=== PATIENT | female | born 1985 | race Caucasian/White ===

== ENCOUNTER 2020-09-11 03:00 | Inpatient (IN) | payer OTHER, SELFPAY ==
[~2020-09-11] VITALS: Ht 172.7 cm; Wt 113.0 kg
[2020-09-11 03:13] VITALS: BP 140/97
--- NOTE | 2020-09-11 03:26 | NUR ---
Pt ambulated to ER bed 12 w/ steady gait. Urine sample collected from pt at this time.
[2020-09-11] MEDS ORDERED: KETOROLAC 30 MG/ML VIAL IVP ONE (03:40)
[2020-09-11] MEDS ORDERED: NACL 0.9% 500 ML IV ONE (03:40)
[2020-09-11] MEDS ORDERED: ONDANSETRON 4 MG/2 ML VIAL IVP ONE ×2 (03:40→06:25)
--- NOTE | 2020-09-11 03:55 | NUR ---
PT TO CT VIA W/C
--- NOTE | 2020-09-11 04:05 | NUR ---
RETURNED FROM CT
--- NOTE | 2020-09-11 04:29 | NUR ---
REPOSITION TO RELIEVE SOME PAIN. PT STATES SITTING UP HELPS EASE SOME OF THE PAIN BUT NOT ALL OF IT
[2020-09-11] MEDS ORDERED: MORPHINE SULFATE 2 MG/ML SYR IVP ONE ×2 (04:50→05:40)
--- NOTE | 2020-09-11 05:35 | NUR ---
PT AMBULATED TO BATHROOM
--- NOTE | 2020-09-11 05:52 | NUR ---
FERNANDO GIVEN TO PIERO FROM LAB
--- NOTE | 2020-09-11 05:54 | NUR ---
EMESIS BAG GIVEN TO PT DUE TO PT STATES "IM FEELING QUEASY"
[2020-09-11] MEDS ORDERED: HYDROcodone/APAP 5/325 MG 1 TAB TAB PO PRN ×2 (06:45→08:00)
--- NOTE | 2020-09-11 07:15 | NUR ---
GAVE REPORT TO JENNIFER MARTIN
[2020-09-11] MEDS: NACL 0.9% 1,000 ML IV SCH ×3 (07:41→22:45)
--- NOTE | 2020-09-11 07:53 | NUR ---
Patient will be admitted to care of Dr Vasques. Admited to [facility]. Will go to room 102B. Belongings list completed. Report to Carlos RODRIGUEZ.
[2020-09-11] MEDS ORDERED: POTASSIUM CHLORIDE 10 MEQ TABER PO PRN (08:00)
[2020-09-11] MEDS ORDERED: MORPHINE SULFATE 2 MG/ML SYR IVP PRN (08:00)
[2020-09-11] MEDS ORDERED: ACETAMINOPHEN 325 MG TAB PO PRN (08:00)
[2020-09-11] MEDS ORDERED: MAG SULF 2000 MG/WATER PREMIX 50 ML IV PRN (08:00)
[2020-09-11] MEDS ORDERED: ONDANSETRON 4 MG/2 ML VIAL IM/IVP PRN (08:00)
[2020-09-11] MEDS ORDERED: LORazepam 2 MG/ML VIAL IM/IVP PRN (08:00)
[2020-09-11] MEDS ORDERED: DOCUSATE SODIUM 100 MG GELCAP PO PRN (08:00)
[2020-09-11 08:02] VITALS: BP 111/60
--- NOTE | 2020-09-11 08:02 | NUR ---
RECEIVED REPORT FROM ER NURSE FOR CONTINUITY OF CARE. PATIENT AAOX4. AMBULATORY. RESPIRATORY EVEN UNLABORED. RIGHT SIDE KIDNEY AND FLANK PAIN. DX WITH KIDNEY STONE. ORIENTED THE PATIENT TO THE ROOM AND HOSPITAL ENVIRONMENT. DENIES PAIN AT THIS TIME. MRSA SWAB COLLECTED. PLAN OF CARE DISCUSSED. WILL CONTINUE TO MONITOR.
[2020-09-11 08:46] LABS: PROTHROMBIN TIME 9.9 secs (10.8-13.4)
[2020-09-11 08:55] LABS: THYROID STIMULATING HORMONE 0.95 uIU/mL (0.34-3.74)
[2020-09-11] MEDS: TAMSULOSIN 0.4 MG CAP PO SCH (08:56)
[2020-09-11 08:57] LABS: BARBITURATE, URINE NEGATIVE ng/ml (NEG <=200); BENZODIAZEPINE, URINE NEGATIVE ng/mL (NEG <=200); CANNABINOID, URINE NEGATIVE ng/mL (NEG <=50); COCAINE, URINE NEGATIVE ng/mL (NEG <=300); OPIATE, URINE POSITIVE ng/mL (NEG <=2000); PHENCYCLIDINE SCREEN,URINE NEGATIVE ng/mL (NEG <=25)
[2020-09-11 09:05] LABS: BILIRUBIN,URINE NEGATIVE (NEGATIVE); BLOOD, URINE 1+ (NEGATIVE); COLOR,URINE YELLOW (YELLOW); LEUKOCYTE ESTERASE ,URINE 1+ (NEGATIVE); NITRITE, URINE NEGATIVE (NEGATIVE); UGLUCOSE NEGATIVE (NEGATIVE)
[2020-09-11 09:07] LABS: APPEARANCE,URINE SLIGHTLY HAZY (CLEAR)
[2020-09-11 09:09] LABS: BASOPHILS % (AUTO) 0.2 % (0.0-2.0); EOSINOPHILS # (AUTO) 0.1 K/uL (0-0.4); EOSINOPHILS % (AUTO) 0.5 % (0.0-4.0); HEMATOCRIT 34.7 % (36-48); LYMPHOCYTES # (AUTO) 1.5 K/uL (2.5-16.5); LYMPHOCYTES % (AUTO) 13.1 % (20.5-51.1); MEAN CORPUSCULAR HEMOGLOBIN 25 pg (27-31); MEAN CORPUSCULAR HGB CONC 32 g/dL (33-37); MEAN CORPUSCULAR VOLUME 77.7 fL (80-94); MONOCYTES # (AUTO) 0.7 K/uL (0.8-1.0); MONOCYTES % (AUTO) 5.6 % (1.7-9.3); NEUTROPHILS # (AUTO) 9.5 K/uL (1.8-7.7); NEUTROPHILS % (AUTO) 80.6 % (42.2-75.2); PLATELET COUNT (AUTO) 289 K/uL (140-450); RED BLOOD CELL COUNT(AUTO) 4.47 MIL/uL (4.20-5.40); RED CELL DISTRIBUTION WIDTH 15.4 % (11.6-13.7); WHITE BLOOD COUNT (AUTO) 11.8 K/uL (4.8-10.8)
--- NOTE | 2020-09-11 11:12 | NUR ---
UROLOGIST CHECKING THE PATIENT RIGHT NOW.
[2020-09-11 16:00] VITALS: BP 108/64
--- NOTE | 2020-09-11 16:21 | NUR ---
PATIENT HAS BEEN SCREENED AND CATEGORIZED LOW NUTRITION RISK. PATIENT WILL BE SEEN WITHIN 7 DAYS OF ADMISSION. 09/17/[address]
--- NOTE | 2020-09-11 19:35 | NUR ---
ENDORSED PATIENT TO SAMPLE WRAPPER RN FOR CONTINUITY OF CARE. PATIENT IN STABLE CONDITION.
--- NOTE | 2020-09-11 19:36 | NUR ---
RECD. RESTING IN BED, AWAKE, A/OX4. RESPIRATION EVEN AND UNLABORED. IV OF NS A 125 ML/HR INFUSING RIGHT HAND G24. IV SALINE LOCK AT THE LEFT AC G18, PATENT AND INTACT. INDEPENDENT, AMBULATORY TO THE BR. AWARE OF PLANNED SURGERY TOMORROW. MEDICATIONS AND CARE FOR THE SHIFT DISCUSSED. VERBALIZED UNDERSTANDING. DENIES PAIN 0/10.
--- NOTE | 2020-09-11 19:45 | NUR ---
RECEIVED PT A/A/OX4, LAYING IN BED WITH NO DISTRESS. REVIEWED POC WITH ANDERS FERMIN AND BOTH AGREED. PT HAS NO COMPLAIN AT THIS TIME.CALL LIGHT WITHIN REACH. WILL CONTINUE POC.
[2020-09-11 20:00] VITALS: BP 122/69
--- NOTE | 2020-09-11 21:00 | NUR ---
HEPARIN NOT GIVEN, FOR CYSTOSCOPY TOMORROW, DR. AGUILERA AWARE.
--- NOTE | 2020-09-11 22:15 | NUR ---
SLEEPING COMFORTABLY IN BED.
--- NOTE | 2020-09-11 23:00 | NUR ---
REMINDED THAT SHE IS NPO PAST MIDNIGHT FOR CYSTOSCOPY TOMORROW. VERBALIZED UNDERSTANDING.
[2020-09-11] MEDS: ZOLPIDEM 5 MG TAB PO PRN (23:43)
--- NOTE | 2020-09-11 23:43 | NUR ---
UNABLE TO SLEEP AGAIN AFTER WAKING UP FROM SLEEP. MEDICATED WITH AMBIEN PER MD ORDER.
[2020-09-12] MEDS: NACL 0.9% 1,000 ML IV SCH ×4 (01:44→22:45)
--- NOTE | 2020-09-12 01:45 | NUR ---
SLEEPING COMFORTABLY IN BED.
--- NOTE | 2020-09-12 03:30 | NUR ---
AMBULATED TO BR TO VOID, BACK TO BED AFTER VOIDING AND GO BACK TO SLEEP.
--- NOTE | 2020-09-12 05:00 | NUR ---
SLEEPING COMFORTABLY IN BED.
[2020-09-12 06:16] LABS: BASOPHILS % (AUTO) 0.4 % (0.0-2.0); EOSINOPHILS # (AUTO) 0.3 K/uL (0-0.4); EOSINOPHILS % (AUTO) 4.4 % (0.0-4.0); HEMATOCRIT 31.7 % (36-48); HEMOGLOBIN 10.2 g/dL (12.0-16.0); LYMPHOCYTES # (AUTO) 2.4 K/uL (2.5-16.5); LYMPHOCYTES % (AUTO) 35.8 % (20.5-51.1); MEAN CORPUSCULAR HEMOGLOBIN 25 pg (27-31); MEAN CORPUSCULAR HGB CONC 32 g/dL (33-37); MEAN CORPUSCULAR VOLUME 77.3 fL (80-94); MONOCYTES # (AUTO) 0.4 K/uL (0.8-1.0); MONOCYTES % (AUTO) 5.3 % (1.7-9.3); NEUTROPHILS # (AUTO) 3.6 K/uL (1.8-7.7); NEUTROPHILS % (AUTO) 54.1 % (42.2-75.2); PLATELET COUNT (AUTO) 237 K/uL (140-450); RED CELL DISTRIBUTION WIDTH 15.6 % (11.6-13.7); WHITE BLOOD COUNT (AUTO) 6.7 K/uL (4.8-10.8)
--- NOTE | 2020-09-12 06:50 | NUR ---
CONDITION REMAIN STABLE. WILL ENDORSE TO AM SHIFT NURSE FOR CONTINUITY OF CARE.
[2020-09-12 07:08] LABS: T4 (THYROXINE) 5.8 ug/dL (4.5-12.0)
--- NOTE | 2020-09-12 07:25 | NUR ---
NURSE REPORT AND ASSESSMENT Report obtained from night nurse Alejandra and this nurse assumed care of patient. Received patient awake at beginning of day shift. No c/o pain or discomfort. NPO for Lithotripsy for 1300. IV NS at 125 ml/hr into R wrist. Daughter mom called this am to talk to patient.
--- NOTE | 2020-09-12 07:30 | NUR ---
ENDORSED TO AM SHIFT NURSE FOR CONTINUITY OF CARE.
[2020-09-12 08:00] VITALS: BP 103/61
[2020-09-12] MEDS: TAMSULOSIN 0.4 MG CAP PO SCH (09:32)
--- NOTE | 2020-09-12 10:42 | NUR ---
SOCIAL WORK NOTE: Patient's Orientation Unable To Assess Information Provided By RE GILBERT - Comments SW WAS UNABLE TO MEET PATIENT AT BEDSIDE. SW COMPLETED ASSESSMENT WITH PATIENT'S . Honey Extractor, Realtionship and Phone Number RE GILBERT [phone] [facility] Power of Rework Machine Operator No Does Patient Have a POLST No Identifying Problems No Social Work Triggers Is A Social Work Consult Needed No Mandate Report Filed No Explanation Of Identifying Problems PATIENT IS A 35-YEAR-OLD FEMALE ADMITTED FOR KIDNEY STONES. PATIENT HAS PMHX OF RENAL DISEASE. Admitted From Home Pre-Admission Level Of Functioning Status Independent/Ambulatory Prior Resources/Services Used In Last 12 Months No Prior Resources Used Prior DME No Prior DME Used Living Situation Lives With Family House Patient Had Caregiver No Home Support No Caregiver Issues Financial Issues No Known Financial Issue Referral To The Financial Counselor Needed No Factors/Needs No D/C Needs Identified Pt/Rep Participated In Discharge Plan Yes Patient/Family Agress With Discharge Plan Yes Discharge Plan Comments PATIENT IS A 35-YEAR-OLD FEMALE ADMITTED FOR KIDNEY STONES. DC Plan Status Initiated
--- NOTE | 2020-09-12 11:05 | NUR ---
DC PLANNIN YRS OLD FEMALE PATIENT WAS ADMITTED FROM HOME WITH A DX OF KIDNEY STONES. PT HAS NO MEDICAL HISTORY. CXR SHOWED NO ACUTE CARDIOPULMONARY DISEASE. RAPID COVID TEST NEGATIVE. ABD X-RAY SHOWED RIGHT RENAL CALICULI. PT IS SCHEDULE TO HAVE A PROCEDURE FOR CYSTOSCOPY RIGHT URETEROSCOPY WITH LASER LITHOTRIPSY WITH UROLOGIST. DC PLAN TO GO HOME WHEN STABLE CM TO FOLLOW
[2020-09-12] MEDS ORDERED: ONDANSETRON 4 MG/2 ML VIAL IVP PRN (13:20)
[2020-09-12] MEDS ORDERED: MEPERIDINE 25 MG/ML SYR IVP PRN (13:20)
[2020-09-12] MEDS ORDERED: diphenhydrAMINE 50 MG/ML VIAL IVP PRN (13:20)
[2020-09-12] MEDS ORDERED: HYDROmorphone 1 MG/ML AMP IVP PRN (13:20)
[2020-09-12] MEDS ORDERED: fentaNYL citrate 0.05 MG/ML VIAL ONE (13:35)
[2020-09-12] MEDS ORDERED: DEXAMETHASONE 4 MG/ML VIAL ONE (13:35)
[2020-09-12] MEDS ORDERED: MIDAZOLAM 2 MG/2 ML VIAL ONE (13:35)
[2020-09-12] MEDS ORDERED: ONDANSETRON 4 MG/2 ML VIAL ONE (13:35)
[2020-09-12] MEDS ORDERED: MEPERIDINE 25 MG/ML SYR ONE (13:35)
[2020-09-12] MEDS ORDERED: PROPOFOL 200 MG/20 ML VIAL IV ONE (13:35)
[2020-09-12] MEDS ORDERED: SEVOFLURANE 250 ML BTL INH ONE (13:35)
[2020-09-12] MEDS ORDERED: LEVOFLOXACIN 500 MG/D5W PREMIX 100 ML IV SCH (14:01)
[2020-09-12 16:00] VITALS: BP 132/79
--- NOTE | 2020-09-12 16:45 | NUR ---
REPORT FOR RECOVERY NURSE Report obtained from recovery nurse after lithotripsy. Patient up to the bathroom to void. Stone removed from R uretheral and patient had a R stint placed in R uretheral. Medicated for pain with [place] 1 tab PO at 1611 with some relief. Patient stated still little pressure from back site.
[2020-09-12] MEDS: LACTATED RINGERS 1,000 ML IV SCH ×2 (18:44→21:40)
--- NOTE | 2020-09-12 19:20 | NUR ---
NURSE REPORT AND ENDORSEMENT REport given to night nruse Charisse to assume care of patient. IV LR at 120 ml/hr. Patient get OOB and voids in toilet. [place] 1 tab given for pain. Patient c/o pressure in back. Has stint in R Ureteral. VSS. Afeb.
--- NOTE | 2020-09-12 19:30 | NUR ---
RECEIVED REPORT AT BEDSIDE FOR CONTINUITY OF CARE, PT IN STABLE CONDITION. SHE IS IN BED AOX4 WITH LACTATED RINGERS RUNNING AT 120. ALL UNIVERSAL PRECAUTIONS IN PLACE.
[2020-09-12 20:00] VITALS: BP 128/75
--- NOTE | 2020-09-12 20:30 | NUR ---
PT SITTING UP IN BED SHE HAS 2 IV SITES R WRIST 24 GUAGE RUNNING LACTATED RINGERS AT 120 AND LAC 18G WHICH IS SALINE LOCKED. PT SAYS SHE HAS PAIN IN LOWER BACK FROM STENT PLACEMENT, BUT PAIN IS TOLERABLE AT THIS TIME. V/S FOLLOWS: T 99.2 P 80 R 20 B/P 128/75 02 93% ON ROOM AIR. ALL ORDERED PRECAUTIONS IN PLACE.
[2020-09-12] MEDS: MORPHINE SULFATE 2 MG/ML SYR IVP PRN (21:38)
--- NOTE | 2020-09-12 21:40 | NUR ---
PT GIVEN ORDERED HEPARIN FOR DVT PREVENTION. MEDICATION PURPOSE EXPLAINED AT BEDSIDE, PT VERBALIZED UNDERSTANDING. PLATELETS ARE 237. PT ALSO C/O OF SEVERE PAIN 7-10 IN LOWER BACK BY KIDNEY AREA. PT GIVEN IVP/PRN MORPHINE FOR SEVERE PAIN. WILL MONITOR FOR EFFECT.
[2020-09-12 22:31] LABS: MAGNESIUM 1.9 mg/dL (1.8-2.4); PHOSPHORUS 3.6 mg/dL (2.5-4.9)
[2020-09-12 22:38] LABS: ANION GAP 13.5 (8-16); CARBON DIOXIDE 23.4 mmol/L (21-32); POTASSIUM 3.9 mmol/L (3.5-5.1)
[2020-09-12 22:39] LABS: CREATININE 0.8 mg/dL (0.6-1.3)
[2020-09-13] VITALS: BP 137/83
[2020-09-13] MEDS: ZOLPIDEM 5 MG TAB PO PRN (00:49)
[2020-09-13] MEDS: MORPHINE SULFATE 2 MG/ML SYR IVP PRN ×3 (00:51→10:24)
--- NOTE | 2020-09-13 01:00 | NUR ---
PT C/O 7/10 PAIN , GIVEN IVP/PRN MORPHINE PT ALSO REQUESTING SLEEPING PILL AND WAS GIVEN PO/PRN AMBIEN. V/S FOLLOWS: T 98.0 P 68 R 18 B/P 137/83 02 94% ON ROOM AIR. ALL ORDERED PRECAUTIONS IN PLACE. PT C/O OF A SMALL AMOUNT OF BLOOD TINGED URINE. WILL CONTINUE TO MONITOR.
--- NOTE | 2020-09-13 02:30 | NUR ---
PT IN BEE ASLEEP NO S/S OF PAIN OR DISTRESS NOTED. ALL ORDERED PRECAUTIONS IN PLACE. Addendum: 09/13/20 at 0340 by Charisse Birmingham RN PT IN BED ASLEEP NO BEE
[2020-09-13 06:06] LABS: BASOPHILS % (AUTO) 0.1 % (0.0-2.0); HEMATOCRIT 35.1 % (36-48); HEMOGLOBIN 11.2 g/dL (12.0-16.0); LYMPHOCYTES # (AUTO) 1.5 K/uL (2.5-16.5); LYMPHOCYTES % (AUTO) 13.1 % (20.5-51.1); MEAN CORPUSCULAR HEMOGLOBIN 25 pg (27-31); MEAN CORPUSCULAR HGB CONC 32 g/dL (33-37); MEAN CORPUSCULAR VOLUME 77.5 fL (80-94); MONOCYTES # (AUTO) 0.4 K/uL (0.8-1.0); MONOCYTES % (AUTO) 3.4 % (1.7-9.3); NEUTROPHILS # (AUTO) 9.4 K/uL (1.8-7.7); NEUTROPHILS % (AUTO) 83.4 % (42.2-75.2); PLATELET COUNT (AUTO) 315 K/uL (140-450); RED BLOOD CELL COUNT(AUTO) 4.53 MIL/uL (4.20-5.40); RED CELL DISTRIBUTION WIDTH 15.8 % (11.6-13.7); WHITE BLOOD COUNT (AUTO) 11.3 K/uL (4.8-10.8)
[2020-09-13] MEDS: LACTATED RINGERS 1,000 ML IV SCH (06:22)
--- NOTE | 2020-09-13 06:35 | NUR ---
PT C/O OF 7/10 PAIN IN R LOWER ABD AND BACK, GIVEN PRN/IVP MORPHINE FOR 7/10 PAIN. PT ABLE TO AMBULATE TO TOILET AND BACK W STEADY GAIT.
[2020-09-13 06:41] LABS: ANION GAP 13.4 (8-16); CARBON DIOXIDE 26.5 mmol/L (21-32); CREATININE 0.7 mg/dL (0.6-1.3); POTASSIUM 3.9 mmol/L (3.5-5.1)
[2020-09-13 06:52] LABS: MAGNESIUM 1.9 mg/dL (1.8-2.4); PHOSPHORUS 3.7 mg/dL (2.5-4.9)
[2020-09-13] MEDS: NACL 0.9% 1,000 ML IV SCH (07:10)
--- NOTE | 2020-09-13 07:30 | NUR ---
RECEIVED BEDSIDE ENDORSEMENT FROM NIGHTSGAFT NURSE FOR CONTINUITY OF CARE
[2020-09-13 08:00] VITALS: BP 138/82
[2020-09-13] MEDS: TAMSULOSIN 0.4 MG CAP PO SCH (08:17)
--- NOTE | 2020-09-13 08:37 | NUR ---
ADMINISTERED PRESCRIBED MEDS PER MD ORDER. PATIENT TOLERATED WELL.MEDICATION EDUCATION PROVIDED. PATIENT VERBALIZED UNDERSTANDING. PATIENT DENIES PAIN. SAFETY MEASURES IN PLACE. WILL CONTINUE TO MONITOR.
[2020-09-13] MEDS ORDERED: SULF-58 PO (08:55)
[2020-09-13] MEDS ORDERED: IBUP-1842 PO (08:55)
--- NOTE | 2020-09-13 10:34 | NUR ---
ADMINISTERED PRESCRIBED PRN FOR PAIN AND CONSTIPATION PER MD ORDER. PATIENT TOLERATED WELL. MEDICATION EDUCATION PROVIDED. PATIENT VERBALIZED UNDERSTANDING. SAFETY MEASURES IN PLACE. WILL CONTINUE TO MONITOR.
[2020-09-13] MEDS ORDERED: DOCU-299 PO (12:12)
[2020-09-13 13:01] VITALS: BP 138/82
--- NOTE | 2020-09-13 13:37 | NUR ---
PATIENT IS DISCHARGED. PATIENT DISCHARGE INSTRUCTIONS PRINTED, REVIEWED AND SIGNED BY PATIENT. PATIENT VERBALIZED UNDERSTANDING OF DISCHARGE ORDERS. PATIENT GIVEN RX FOR MEDICATION ORDERS PRESCRIBED BY MD. PATIENT GATHERED ALL BELONGINGS. IV JANEE AND ID BANDS REMOVED. ESCORTED PATIENT TO FRONT OF HOSPITAL WHERE SHE WAS PICKED UP BY FAMILY MEMBER. PATIENT IS STABLE.
== END 2020-09-13 13:35 | disposition home or self-care (01) | DRG 446 ==
LOC: MED 03:00 → MMU 06:50 → MTU 08:00
PROC: BT1DYZZ Fluoroscopy of Right Kidney, Ureter and Bladder using Other Contrast (ICD-10-PCS; 2020-09-11)
PROC: 0TC68ZZ Extirpation of Matter from Right Ureter, Via Natural or Artificial Opening Endoscopic (ICD-10-PCS; 2020-09-12)
PROC: 0T768DZ Dilation of Right Ureter with Intraluminal Device, Via Natural or Artificial Opening Endoscopic (ICD-10-PCS; principal; 2020-09-12 13:30)
DX: N13.2 Hydronephrosis with renal and ureteral calculous obstruction (principal); E66.9 Obesity, unspecified; Z20.822 Contact with and (suspected) exposure to COVID-19; K42.9 Umbilical hernia without obstruction or gangrene; Z68.37 Body mass index [BMI] 37.0-37.9, adult; Z90.49 Acquired absence of other specified parts of digestive tract
CPT/HCPCS: 36415; 71045; 80048; 80305; 81001; 82150; 83036; 83690; 83735; 84100; 84134; 84436; 84443; 85025; 85610; 85730; 87081; 87086; 88300; 96374; 96375; 96376; 99285; C1758; C1769; C2617; J0696; J1100; J1644; J1885; J1956; J2175; J2250; J2270; J2405; J2704; J3010; J7030; J7060; J7120

== ENCOUNTER 2020-09-20 23:03 | Inpatient (IN) | payer OTHER, SELFPAY ==
[~2020-09-20] VITALS: Ht 172.7 cm; Wt 112.9 kg
[~2020-09-20 23:03] MED LIST: DOCU-299 PO; IBUP-1842 PO; SULF-58 PO
[2020-09-20 23:09] VITALS: BP 136/90
--- NOTE | 2020-09-20 23:12 | NUR ---
TO LOBBY A/W BED AMBULATORY
--- NOTE | 2020-09-21 00:14 | NUR ---
Dr. Rome examining patient.
--- NOTE | 2020-09-21 00:23 | NUR ---
PT AMBULATED TO BED #4
--- NOTE | 2020-09-21 00:30 | NUR ---
RECEIVED IN BED 4 WITH C/O RIGHT FLANK PAIN, H/O KIDNEY STONES. PT HAD STENT PLACED LAST WEEK WHICH WAS REMOVED YESTERDAY. PT STATES HAS HAD BLOOD IN URINE SINCE REMOVAL OF THE STENT
[2020-09-21] MEDS ORDERED: MORPHINE SULFATE 2 MG/ML SYR IVP ONE (01:15)
[2020-09-21] MEDS ORDERED: NACL 0.9% 1,000 ML IV SCH (01:15)
[2020-09-21] MEDS ORDERED: ONDANSETRON 4 MG/2 ML VIAL IVP ONE (01:15)
[2020-09-21 01:35] LABS: BASOPHILS % (AUTO) 0.1 % (0.0-2.0); EOSINOPHILS # (AUTO) 0.3 K/uL (0-0.4); EOSINOPHILS % (AUTO) 2.6 % (0.0-4.0); HEMATOCRIT 36.6 % (36-48); HEMOGLOBIN 11.7 g/dL (12.0-16.0); LYMPHOCYTES # (AUTO) 0.9 K/uL (2.5-16.5); LYMPHOCYTES % (AUTO) 6.8 % (20.5-51.1); MEAN CORPUSCULAR HEMOGLOBIN 25 pg (27-31); MEAN CORPUSCULAR HGB CONC 32 g/dL (33-37); MONOCYTES # (AUTO) 0.4 K/uL (0.8-1.0); MONOCYTES % (AUTO) 3.2 % (1.7-9.3); NEUTROPHILS # (AUTO) 11.8 K/uL (1.8-7.7); NEUTROPHILS % (AUTO) 87.3 % (42.2-75.2); PLATELET COUNT (AUTO) 309 K/uL (140-450); RED BLOOD CELL COUNT(AUTO) 4.69 MIL/uL (4.20-5.40); RED CELL DISTRIBUTION WIDTH 16.5 % (11.6-13.7); WHITE BLOOD COUNT (AUTO) 13.5 K/uL (4.8-10.8)
[2020-09-21 01:38] LABS: APPEARANCE,URINE HAZY (CLEAR); BILIRUBIN,URINE NEGATIVE (NEGATIVE); BLOOD, URINE 3+ (NEGATIVE); COLOR,URINE BROWN (YELLOW); LEUKOCYTE ESTERASE ,URINE TRACE (NEGATIVE); NITRITE, URINE NEGATIVE (NEGATIVE); UGLUCOSE NEGATIVE (NEGATIVE)
[2020-09-21 01:47] LABS: RBC,URINE TOO NUMEROUS TO COUN /HPF (0-5)
--- NOTE | 2020-09-21 01:59 | NUR ---
URINE NEGATIVE PER SERUM LAB TEST.
[2020-09-21 02:00] LABS: ALBUMIN 3.9 g/dL (3.4-5.0); ANION GAP 13.9 (8-16); CARBON DIOXIDE 25.7 mmol/L (21-32); CREATININE 1.1 mg/dL (0.6-1.3); POTASSIUM 3.6 mmol/L (3.5-5.1); TOTAL BILIRUBIN 0.4 mg/dL (0.0-1.0)
--- NOTE | 2020-09-21 02:05 | NUR ---
TO CT VIA W/C
--- NOTE | 2020-09-21 02:15 | NUR ---
RETURNED FROM CT
[2020-09-21] MEDS ORDERED: MORPHINE SULFATE 4 MG/ML SYR IVP ONE (02:25)
[2020-09-21] MEDS ORDERED: NACL 0.9% 1,000 ML IV ONE (02:30)
[2020-09-21] MEDS ORDERED: cefTRIAXone 1,000 MG VIAL ONE (02:38)
--- NOTE | 2020-09-21 03:26 | NUR ---
FERNANDO SWAB OBTAINED, SENT TO LAB
[2020-09-21] MEDS: NACL 0.9% 1,000 ML IV SCH ×2 (03:35→17:27)
--- NOTE | 2020-09-21 04:35 | NUR ---
REPORT CALLED TO JENNIFER ISAAC
--- NOTE | 2020-09-21 04:55 | NUR ---
TO 240A VIA W/C., ACCOMPANIED BY ERT PAIN RATED 0/10.
[2020-09-21 05:00] VITALS: BP 135/81
--- NOTE | 2020-09-21 05:00 | NUR ---
PT ARRIVED TO THE UNIT VIA WHEELCHAIR. PT IS AWAKE AND ALERT, A&OX4. BREATHING IS UNLABORED ON RA. PT DENIES PAIN AT THIS TIME. PT IS ABLE TO AMBULATE INDEPENDENTLY. ABDOMEN IS SOFT AND TENDER. BOWEL SOUNDS PRESENT IN ALL QUADRANTS. SKIN IS WARM, DRY, AND INTACT. IV IS IN THE IN LEFT AC 20 GAUGE. IV FLUIDS WILL BE ADMINISTERED ORDERED. NO DISTRESS NOTED. STANDARD PRECAUTIONS AND FALL PRECAUTIONS IN PLACE. PLAN OF CARE DISCUSSED. BELONGINGS WITHIN REACH.
--- NOTE | 2020-09-21 06:50 | NUR ---
SPOKE TO MOTHER OF PT ON THE PHONE AND INFORMED HER OF THE STATUS OF THE PT. ALL QUESTIONS ANSWERED.
--- NOTE | 2020-09-21 07:10 | NUR ---
ENDORSED PT TO DAY SHIFT NURSE FOR CONTINUITY OF CARE. PT IS STABLE AT THIS TIME. PLAN OF CARE DISCUSSED.
--- NOTE | 2020-09-21 07:11 | NUR ---
RECEIVED REPORT FROM [facility], [place] SHIFT RN FOR CONTINUITY OF CARE. PATIENT ASLEEP, RESPIRATORY EVEN UNLABORED. IV TO LEFT AC INFUSING NS@ 75ML/HR. SKIN INTACT, DRY AND WARM TO TOUCH. NO ACUTE DISTRESS NOTED AT THIS TIME. WILL CONTINUE TO MONITOR.
[2020-09-21 08:00] VITALS: BP 121/67
[2020-09-21] MEDS ORDERED: DOCUSATE SODIUM 100 MG GELCAP PO PRN (08:05)
[2020-09-21] MEDS ORDERED: POTASSIUM CHLORIDE 10 MEQ TABER PO PRN (08:05)
[2020-09-21] MEDS ORDERED: ZOLPIDEM 5 MG TAB PO PRN (08:05)
[2020-09-21] MEDS ORDERED: ACETAMINOPHEN 325 MG TAB PO PRN (08:05)
[2020-09-21] MEDS ORDERED: ONDANSETRON 4 MG/2 ML VIAL IM/IVP PRN (08:05)
[2020-09-21] MEDS ORDERED: guaiFENesin DM 200/20 MG-10 ML 10 ML UDC PO PRN (08:05)
[2020-09-21] MEDS ORDERED: HYDROcodone/APAP 7.5/325 MG 1 TAB PO PRN (08:05)
[2020-09-21 08:44] LABS: CHOL/HDL RATIO 3.4 (1-4.5); FREE T4 (FREE THYROXINE) 0.87 ng/dL (0.76-1.46); MAGNESIUM 1.9 mg/dL (1.8-2.4); PHOSPHORUS 3.8 mg/dL (2.5-4.9); THYROID STIMULATING HORMONE 1.33 uIU/mL (0.34-3.74)
[2020-09-21] MEDS: PANTOPRAZOLE 40 MG TABEC PO SCH (08:44)
--- NOTE | 2020-09-21 08:44 | NUR ---
SCHEDULED MEDICATIONS GIVEN. EDUCATION PROVIDED, DENIES PAIN AT THIS TIME. PATIENT HAVING BREAKFAST. WILL CONTINUE TO MONITOR.
[2020-09-21 08:51] LABS: BARBITURATE, URINE NEGATIVE ng/ml (NEG <=200); BENZODIAZEPINE, URINE NEGATIVE ng/mL (NEG <=200); CANNABINOID, URINE NEGATIVE ng/mL (NEG <=50); COCAINE, URINE NEGATIVE ng/mL (NEG <=300); OPIATE, URINE POSITIVE ng/mL (NEG <=2000); PHENCYCLIDINE SCREEN,URINE NEGATIVE ng/mL (NEG <=25)
--- NOTE | 2020-09-21 09:17 | NUR ---
DC PLANNIN YRS OLD FEMALE PATIENT WAS ADMITTED FROM HOME WITH A DX OF INTRACTABLE PAIN, PYELONEPHRITIS. PT HAS A HX OF ASTHMA, NEPHROLITHIASIS CHOLECYSTITIS AND RT LEG FRACTURE. CT ABD/PELVIS SHOWED HYDRONEPHROSIS WITH HYDROURETER ON THE RIGHT . CXR SHOWED NEGATIVE RAPID COVID TEST NEGATIVE. STARTED IVF AND IV ABX ROCEPHIN NORCO AND TYLENOL FOR PAIN. CONSULTED WITH UROLOGIST. DC PLAN TO GO HOME WHEN STABLE CM TO FOLLOW
--- NOTE | 2020-09-21 11:12 | NUR ---
PATIENT ASLEEP IN RIGHT LATERAL POSITION. NO ACUTE DISTRESS NOTED, WILL CONTINUE TO MONITOR.
--- NOTE | 2020-09-21 14:35 | NUR ---
PATIENT HAS BEEN SCREENED AND CATEGORIZED MODERATE NUTRITION RISK. PATIENT WILL BE SEEN WITHIN 3-5 DAYS OF ADMISSION. 09/23/20 - 09/25/20 SH[address]QU[address] MCGOWAN MBA, RD
[2020-09-21] MEDS: KETOROLAC 30 MG/ML VIAL IVP PRN ×2 (14:58→23:06)
--- NOTE | 2020-09-21 14:58 | NUR ---
TORADOL GIVEN FOR RIGHT SIDE FLANK PAIN 10/10. EDUCATION PROVIDED, WILL CONTINUE TO MONITOR.
[2020-09-21 16:00] VITALS: BP 114/71
--- NOTE | 2020-09-21 17:28 | NUR ---
HANG NEW BAG OF IVF, PATIENT ASLEEP IN LEFT LATERAL POSITION. WILL CONTINUE TO MONITOR.
--- NOTE | 2020-09-21 19:30 | NUR ---
ENDORSED PATIENT TO BRANCH ASSOCIATE RN FOR CONTINUITY OF CARE. PATIENT IN STABLE CONDITION.
--- NOTE | 2020-09-21 19:42 | NUR ---
RECEIVED PT FROM AM RN SITTING ON BED, NO DISTRESS. RESPIRATION REGULAR NON LABORED. DENIES PAIN. WILL CONTINNUE TO MONITOR.
--- NOTE | 2020-09-21 20:33 | NUR ---
SCHEDULED MEDS ADMINISTERED PER ORDER. AFEBRILE, NO DISTRESS, DENIES PAIN. WILL CONTINUE TO MONITOR.
--- NOTE | 2020-09-21 23:06 | NUR ---
MADE ROUNDS , PATIENT COMPLAINTS OF SEVERE PAIN 7/10 ON THE RIGHT ABDOMEN AND BURNING SENSATION UPON URINATION. TORADOL 30MG GIVEN IV PUSH AND WAS EFFECTIVE.
[2020-09-22] VITALS: BP 114/66
--- NOTE | 2020-09-22 04:01 | NUR ---
MADE ROUNDS , PT SLEEPING, NO DISTRESS NOTED AT THIS TIME.
[2020-09-22 05:25] LABS: ANION GAP 11.8 (8-16); BASOPHILS % (AUTO) 0.4 % (0.0-2.0); CREATININE 0.8 mg/dL (0.6-1.3); EOSINOPHILS # (AUTO) 0.5 K/uL (0-0.4); HEMATOCRIT 31.5 % (36-48); HEMOGLOBIN 10.2 g/dL (12.0-16.0); LYMPHOCYTES # (AUTO) 2.4 K/uL (2.5-16.5); LYMPHOCYTES % (AUTO) 25.8 % (20.5-51.1); MEAN CORPUSCULAR HEMOGLOBIN 25 pg (27-31); MEAN CORPUSCULAR HGB CONC 32 g/dL (33-37); MEAN CORPUSCULAR VOLUME 77.4 fL (80-94); MONOCYTES # (AUTO) 0.6 K/uL (0.8-1.0); NEUTROPHILS # (AUTO) 5.6 K/uL (1.8-7.7); NEUTROPHILS % (AUTO) 61.8 % (42.2-75.2); PLATELET COUNT (AUTO) 257 K/uL (140-450); POTASSIUM 3.8 mmol/L (3.5-5.1); RED BLOOD CELL COUNT(AUTO) 4.07 MIL/uL (4.20-5.40); RED CELL DISTRIBUTION WIDTH 16.2 % (11.6-13.7); WHITE BLOOD COUNT (AUTO) 9.1 K/uL (4.8-10.8)
[2020-09-22 07:08] LABS: T4 (THYROXINE) 6.5 ug/dL (4.5-12.0)
[2020-09-22] MEDS: NACL 0.9% 1,000 ML IV SCH (07:08)
--- NOTE | 2020-09-22 07:28 | NUR ---
ENDORSED PATIENT TO AM RN FOR CONTINUITY OF CARE.
--- NOTE | 2020-09-22 07:33 | NUR ---
PT RECEIVED FROM [employer] FLATBED DRIVER RN. PT IS RESTING IN BED NO S/S OF DISTRESS. ALL SAFETY MEASURES IN PLACE. WILL CONTINUE TO MONITOR.
[2020-09-22 08:00] VITALS: BP 112/57
[2020-09-22] MEDS ORDERED: TAMSULOSIN 0.4 MG CAP PO SCH (08:30)
[2020-09-22] MEDS: PANTOPRAZOLE 40 MG TABEC PO SCH (08:41)
--- NOTE | 2020-09-22 08:42 | NUR ---
MD AT BEDSIDE. MEDICATIONS GIVEN PER MD ORDER. PT EDUCATED. PT VERBALIZED UNDERSTANDING. NO S/S OF DISTRESS AT THIS TIME.CALL LIGHT IS WITHIN REACH. WILL CONTINUE TO MONITOR
--- NOTE | 2020-09-22 09:43 | NUR ---
PT COMPLAINS OF FLANK PAIN 12/23.MEDICATIONS GIVEN PER MD ORDER. PT EDUCATED. PT VERBALIZED UNDERSTANDING. NO S/S OF DISTRESS AT THIS TIME.CALL LIGHT IS WITHIN REACH. WILL CONTINUE TO MONITOR
[2020-09-22] MEDS ORDERED: CEPH250C16 PO (10:04)
[2020-09-22] MEDS ORDERED: TAMS0.4C96 PO (10:04)
[2020-09-22 10:26] VITALS: BP 112/57
[2020-09-22] MEDS ORDERED: HYDR-5080 PO (10:51)
--- NOTE | 2020-09-22 11:50 | NUR ---
PT LEFT HOME IN STABLE CONDITION VIA WHEEL CHAIR. PRIVATE VEHICLE PICKED HER UP. PTS EDUCATED AND SIGNED ALL PAPERWORK. PT EDUCATED AND VERBALIZED UNDERSTANDING FOR CONTINUITY OF CARE. IV CANULA REMOVED AND INTACT. ARM BANDS REMOVED
== END 2020-09-22 11:50 | disposition home or self-care (01) | DRG 720 ==
LOC: MED 23:03 → MTU 09-21 03:33
PROVIDERS: ADMIT Family Medicine; ATTEND Family Medicine
DX: A41.9 Sepsis, unspecified organism (principal); N13.6 Pyonephrosis; E78.2 Mixed hyperlipidemia; J45.909 Unspecified asthma, uncomplicated; E86.0 Dehydration; D50.9 Iron deficiency anemia, unspecified; E66.9 Obesity, unspecified; N28.89 Other specified disorders of kidney and ureter; Z20.822 Contact with and (suspected) exposure to COVID-19; Z79.899 Other long term (current) drug therapy; Z88.1 Allergy status to other antibiotic agents; Z87.442 Personal history of urinary calculi; Z68.37 Body mass index [BMI] 37.0-37.9, adult; Z90.49 Acquired absence of other specified parts of digestive tract; Z81.8 Family history of other mental and behavioral disorders; Z80.8 Family history of malignant neoplasm of other organs or systems; Z82.49 Family history of ischemic heart disease and other diseases of the circulatory system; Z97.5 Presence of (intrauterine) contraceptive device
CPT/HCPCS: 36415; 71045; 80048; 80053; 80305; 81001; 82150; 83036; 83605; 83690; 83735; 83880; 84100; 84436; 84439; 84443; 84479; 84484; 84703; 85025; 85610; 85730; 87040; 87081; 87086; 96361; 96365; 96375; 99291; J0696; J1885; J2270; J2405; J7030; J7060